=== PATIENT | female | born 1965 | race Caucasian/White ===

== ENCOUNTER 2017-07-02 11:53 | Emergency (ER) | payer OTHER ==
[~2017-07-02] VITALS: Ht 165.1 cm; Wt 58.1 kg
[2017-07-02 11:53] VITALS: BP_SYST 137
[2017-07-02] MEDS ORDERED: HYDROcodone/ACETAMIN 5-325 MG TAB (NORCO/ VICODIN) PO ONE (12:15)
[2017-07-02 13:38] VITALS: BP_SYST 135
== END 2017-07-02 13:31 | disposition home or self-care (01) ==
LOC: SED 11:53
DX: S52.512A Displaced fracture of left radial styloid process, initial encounter for closed fracture (principal); Z88.1 Allergy status to other antibiotic agents; W07.XXXA Fall from chair, initial encounter; Y93.89 Activity, other specified; Y92.89 Other specified places as the place of occurrence of the external cause; Y99.8 Other external cause status
CPT/HCPCS: 99284

== ENCOUNTER 2018-07-14 20:36 | Emergency (ER) | payer OTHER ==
[~2018-07-14] VITALS: Ht 165.1 cm; Wt 56.7 kg
[2018-07-14 20:45] VITALS: BP_SYST 100
[2018-07-14] MEDS ORDERED: IBUPROFEN 600 MG TABLET PO ONE (21:30)
[2018-07-14 22:20] VITALS: BP_SYST 114
== END 2018-07-14 22:20 | disposition home or self-care (01) ==
LOC: SED 20:36
DX: S63.501A Unspecified sprain of right wrist, initial encounter (principal); W01.10XA Fall on same level from slipping, tripping and stumbling with subsequent striking against unspecified object, initial encounter; Y92.34 Swimming pool (public) as the place of occurrence of the external cause; Y99.8 Other external cause status; Z88.0 Allergy status to penicillin
CPT/HCPCS: 99284